=== PATIENT | female | born 1975 | race Two or more races ===

== ENCOUNTER 2017-12-31 17:34 | Emergency (ER) | payer MEDICAID ==
[~2017-12-31] VITALS: Ht 162.6 cm; Wt 93.9 kg
[2017-12-31 17:50] VITALS: BP 152/77
[2017-12-31] MEDS ORDERED: diphenhdrAMINE HCL 25 MG CAP PO ONE (20:45)
[2017-12-31] MEDS ORDERED: methylPREDNISolone SOD SUCC 125 MG/2 ML VL IM ONE (20:45)
[2017-12-31] MEDS ORDERED: FAMOTIDINE 20 MG TAB PO ONE (20:45)
== END 2017-12-31 21:13 | disposition home or self-care (01) ==
LOC: ER 17:34
DX: L25.8 Unspecified contact dermatitis due to other agents (principal); T46.4X5A Adverse effect of angiotensin-converting-enzyme inhibitors, initial encounter; I10 Essential (primary) hypertension; Z88.6 Allergy status to analgesic agent; Y92.9 Unspecified place or not applicable
CPT/HCPCS: 96372; 99283; J2930